=== PATIENT | male | born 1960 | race Two or more races ===

== ENCOUNTER 2024-04-26 22:24 | Inpatient (IN) | payer MEDICAID, OTHER ==
[~2024-04-26] VITALS: Ht 195.6 cm; Wt 79.5 kg
[2024-04-26 23:22] LABS: COVID AG,FIA SOURCE NASAL SWAB
[2024-04-26 23:26] LABS: BASOPHILS % (AUTO) 0.5 % (0.0-2.0); EOSINOPHILS % (AUTO) 0 % (1.0-6.0); HEMATOCRIT 52.2 % (41-53); HEMOGLOBIN 17.6 g/dL (13.5-17.5); LYMPHOCYTES # (AUTO) 1.9 K/uL (1.0-4.8); LYMPHOCYTES % (AUTO) 22.9 % (22.0-44.0); MEAN CORPUSCULAR HEMOGLOBIN 33.5 pg (26.0-34.0); MEAN CORPUSCULAR HGB CONC 33.6 G/dL (31.0-37.0); MEAN CORPUSCULAR VOLUME 100 fL (80-100); MONOCYTES # (AUTO) 0.3 K/uL (0.1-1.0); MONOCYTES % (AUTO) 3.6 % (2.0-9.0); PLATELET COUNT (AUTO) 203 K/uL (150-450); RED BLOOD CELL COUNT(AUTO) 5.25 MIL/uL (4.50-5.90); RED CELL DISTRIBUTION WIDTH 14.1 % (11.5-14.5); WHITE BLOOD COUNT (AUTO) 8.3 K/uL (4.5-11.0)
[2024-04-26 23:31] LABS: ANION GAP 18 mmol/L (8-16); CARBON DIOXIDE 24 mmol/L (22-29); CHLORIDE 99 mmol/L (98-107); CREATININE 0.91 mg/dL (0.60-1.30); GLOMERULAR FILTR. RATE CALC > 60 mL/min (>60); GLUCOSE,RANDOM 125 mg/dL (70-110); POTASSIUM 3.8 mmol/L (3.5-5.1); SODIUM SERUM 141 mmol/L (136-145); UREA NITROGEN, BLOOD 18 mg/dL (7-18)
[2024-04-26 23:44] LABS: SARS-COV2 (COVID) ANTIGEN,FIA Negative (Negative)
[2024-04-26 23:46] LABS: ALCOHOL, BLOOD (SERUM) 463 mg/dL (0-10)
[2024-04-27] VITALS (9 sets, daily range): BP systolic 108–157; BP diastolic 73–99; PULSE 67–107; RESP 17–19; TEMP 96.8–98.5; O2SAT 97–99
[2024-04-27 01:20] LABS: ALCOHOL, URINE DRUG SCREEN POSITIVE (NEGATIVE); AMPHET/METH SCREEN,URINE NEGATIVE (NEGATIVE); BARBITURATE SCREEN, URINE NEGATIVE (NEGATIVE); BENZODIAZEPINES SCREEN,URINE NEGATIVE (NEGATIVE); CANNABINOID SCREEN,URINE NEGATIVE (NEGATIVE); COCAINE SCREEN,URINE NEGATIVE (NEGATIVE); METHADONE SCREEN, URINE NEGATIVE (NEGATIVE); OPIATE SCREEN,URINE NEGATIVE (NEGATIVE); PHENCYCLIDINE SCREEN,URINE NEGATIVE (NEGATIVE)
[2024-04-27] MEDS: LORazepam 2 MG TABLET PO ONE (04:17)
[2024-04-27] MEDS: LORazepam 2 MG TABLET PO PRN ×2 (09:07→16:46)
[2024-04-27] MEDS ORDERED: HydrOXYzine PAMOATE 50 MG CAPSULE PO PRN (12:00)
[2024-04-27] MEDS ORDERED: GuaiFENesin/D-METHORPHAN [SUGAR-FREE] 200-20MG/10 ML SYRUP UDCUP PO PRN (12:00)
[2024-04-27] MEDS ORDERED: LOPERAMIDE HCL 2 MG CAPSULE PO PRN (12:00)
[2024-04-27] MEDS: LORazepam 2 MG/ML VIAL IM ONE (12:02)
[2024-04-27] MEDS: CYANOCOBALAMIN 1,000 MCG/ML VIAL IM ONE (13:18)
[2024-04-27] MEDS: MULTIVITAMINS WITH MINERALS, THERAPEUTIC TABLET PO SCH (13:18)
[2024-04-27] MEDS: FOLIC ACID 1 MG TABLET PO SCH (13:19)
[2024-04-27] MEDS: THIAMINE 100 MG TABLET PO SCH (16:25)
[2024-04-28] VITALS (8 sets, daily range): BP systolic 124–145; BP diastolic 68–89; PULSE 81–94; RESP 18–19; TEMP 98–99; O2SAT 95–98
[2024-04-28] MEDS: LORazepam 2 MG TABLET PO SCH (08:56)
[2024-04-28] MEDS ORDERED: LOPERAMIDE HCL 2 MG CAPSULE PO PRN (11:30)
[2024-04-28] MEDS ORDERED: GuaiFENesin/D-METHORPHAN [SUGAR-FREE] 200-20MG/10 ML SYRUP UDCUP PO PRN (11:30)
[2024-04-28] MEDS ORDERED: ALBUTEROL SULFATE HFA 90 MCG/PUFF 8 GM INHALER IH PRN (11:30)
[2024-04-28] MEDS ORDERED: DOCUSATE SODIUM 100 MG CAPSULE PO PRN (11:30)
[2024-04-28] MEDS ORDERED: MAGNESIUM HYDROXIDE SUSPENSION 30 ML UDCUP PO PRN (11:30)
[2024-04-28] MEDS ORDERED: NICOTINE 14 MG/24 HOUR PATCH TD PRN (11:30)
[2024-04-28] MEDS ORDERED: IBUPROFEN 400 MG TABLET PO PRN (11:30)
[2024-04-28] MEDS ORDERED: CloNIDine HCL 0.1 MG TABLET PO PRN (11:30)
[2024-04-28] MEDS ORDERED: MAG HYDROX/ALUMINUM HYD/SIMETH ES 30 ML SUSPENSION UDCUP PO PRN (11:30)
[2024-04-28] MEDS ORDERED: ONDANSETRON 4 MG TABLET PO PRN (11:30)
[2024-04-28] MEDS ORDERED: PETROLATUM,WHITE 28 GM JELLY TP PRN (11:30)
[2024-04-28] MEDS: ACETAMINOPHEN 325 MG TABLET PO PRN (13:14)
[2024-04-28] MEDS: ZOLPIDEM TARTRATE 10 MG TABLET PO PRN (22:52)
[2024-04-29] MEDS: HALOPERIDOL 5 MG TABLET PO PRN (02:30)
[2024-04-29] MEDS: LORazepam 2 MG TABLET PO PRN (02:30)
[2024-04-29 08:00] VITALS: BP 125/91; PULSE 87; RESP 19; TEMP 98; O2SAT 99
[2024-04-29 08:20] VITALS: BP 125/91; PULSE 87; RESP 20; TEMP 98; O2SAT 99
[2024-04-29 09:13] LABS: HEMOGLOBIN A1C 4.9 % (3.8-5.6)
[2024-04-29 09:28] LABS: THYROID STIMULATING HORMONE 1.96 uIU/mL (0.36-3.74)
[2024-04-29 12:00] LABS: CHOL/HDL RATIO 2.2 (4.2-7.3)
[2024-04-29 22:34] VITALS: BP 126/85; PULSE 87; RESP 18; TEMP 97.5; O2SAT 95
[2024-04-29 23:13] VITALS: BP 125/85; PULSE 94; RESP 18; TEMP 97.5; O2SAT 97
[2024-04-30] MEDS ORDERED: LORazepam 1 MG TABLET PO PRN (07:00)
[2024-04-30] MEDS: LORazepam 1 MG TABLET PO SCH (08:52)
[2024-04-30 09:56] VITALS: BP 121/80; PULSE 86; PULSE 87; RESP 18; RESP 19; TEMP 98.5; O2SAT 99
[2024-04-30] MEDS ORDERED: INFLUENZA VIRUS VACCINE TVS (6MO+) 2024-25/PF 45 MCG/0.5 ML SYRINGE IM. ONE (15:30)
[2024-04-30 20:37] VITALS: BP 134/77; PULSE 90; RESP 18; TEMP 97.6
[2024-04-30 20:40] VITALS: BP 134/77; PULSE 90; RESP 18; TEMP 97.6
[2024-05-01 08:30] VITALS: BP 140/88; PULSE 83; RESP 18; TEMP 97.5; O2SAT 96
[2024-05-01 09:00] VITALS: BP 140/88; PULSE 83; RESP 18; TEMP 97.5; O2SAT 96
[2024-05-01] MEDS: INFLUENZA VIRUS VACCINE TVS (6MO+) 2024-25/PF 45 MCG/0.5 ML SYRINGE IM. ONE (12:08)
[2024-05-01 20:59] VITALS: BP 124/72; PULSE 71; RESP 18; TEMP 98.2; O2SAT 97
[2024-05-01] MEDS: LORazepam 1 MG TABLET PO PRN (21:49)
[2024-05-02 09:24] VITALS: BP 123/97; PULSE 82; RESP 18; TEMP 97.4; O2SAT 98
== END 2024-05-02 12:00 | disposition home or self-care (01) | DRG 751 ==
LOC: EMS 22:24 → 3EI 04-27 07:47
PROVIDERS: ADMIT Psychiatry & Neurology Psychiatry; ATTEND Psychiatry & Neurology Psychiatry
PROC: GZHZZZZ Group Psychotherapy (ICD-10-PCS; principal; 2024-04-27)
PROC: GZ51ZZZ Individual Psychotherapy, Behavioral (ICD-10-PCS; 2024-04-27)
DX: F33.2 Major depressive disorder, recurrent severe without psychotic features (principal); R45.851 Suicidal ideations; F10.139 Alcohol abuse with withdrawal, unspecified; F10.129 Alcohol abuse with intoxication, unspecified; R73.9 Hyperglycemia, unspecified; Z20.822 Contact with and (suspected) exposure to COVID-19; F41.9 Anxiety disorder, unspecified; G47.00 Insomnia, unspecified; Z59.02 Unsheltered homelessness; Z87.891 Personal history of nicotine dependence
CPT/HCPCS: 80048; 80061; 80307; 83036; 84443; 85025; 90686; 99285; G0480; J2060; J3420

== ENCOUNTER 2024-06-18 10:50 | Inpatient (IN) | payer MEDICAID, OTHER ==
[~2024-06-18] VITALS: Ht 182.9 cm; Wt 81.0 kg
[2024-06-18 11:46] LABS: BASOPHILS % (AUTO) 0.8 % (0.0-2.0); EOSINOPHILS % (AUTO) 0.1 % (1.0-6.0); HEMATOCRIT 49.6 % (41-53); HEMOGLOBIN 16.7 g/dL (13.5-17.5); LYMPHOCYTES # (AUTO) 1.5 K/uL (1.0-4.8); LYMPHOCYTES % (AUTO) 19.9 % (22.0-44.0); MEAN CORPUSCULAR HEMOGLOBIN 33.5 pg (26.0-34.0); MEAN CORPUSCULAR HGB CONC 33.6 G/dL (31.0-37.0); MEAN CORPUSCULAR VOLUME 100 fL (80-100); MONOCYTES # (AUTO) 0.2 K/uL (0.1-1.0); MONOCYTES % (AUTO) 3.2 % (2.0-9.0); NEUTROPHILS # (AUTO) 5.7 K/uL (1.8-7.7); PLATELET COUNT (AUTO) 232 K/uL (150-450); RED BLOOD CELL COUNT(AUTO) 4.97 MIL/uL (4.50-5.90); RED CELL DISTRIBUTION WIDTH 14.1 % (11.5-14.5); WHITE BLOOD COUNT (AUTO) 7.5 K/uL (4.5-11.0)
[2024-06-18] MEDS: ONDANSETRON 4 MG RAPDIS TABLET PO ONE ×2 (11:52→20:04)
[2024-06-18 12:09] LABS: ANION GAP 13 mmol/L (8-16); CALCIUM, TOTAL 8.3 mg/dL (8.8-10.5); CARBON DIOXIDE 24 mmol/L (22-29); CHLORIDE 105 mmol/L (98-107); CREATININE 0.83 mg/dL (0.60-1.30); GLOMERULAR FILTR. RATE CALC > 60 mL/min (>60); GLUCOSE,RANDOM 122 mg/dL (70-110); POTASSIUM 3.9 mmol/L (3.5-5.1); SODIUM SERUM 142 mmol/L (136-145); UREA NITROGEN, BLOOD 9 mg/dL (7-18)
[2024-06-18 12:13] LABS: ALCOHOL, BLOOD (SERUM) 415 mg/dL (0-10)
[2024-06-18 12:16] LABS: ALANINE AMINOTRANSFERASE 32 U/L (12-78); ALBUMIN 3.9 g/dL (3.4-5.0); ALKALINE PHOSPHATASE 83 U/L (46-116); ASPARTATE AMINOTRANSFERASE 36 U/L (15-37); TOTAL PROTEIN, SERUM 7.6 g/dL (6.4-8.2)
[2024-06-18 12:19] LABS: PH,URINE DRUG SCREEN 6.5 (5.0-8.0)
[2024-06-18 12:25] LABS: AMPHET/METH SCREEN,URINE NEGATIVE (NEGATIVE); BARBITURATE SCREEN, URINE NEGATIVE (NEGATIVE); BENZODIAZEPINES SCREEN,URINE NEGATIVE (NEGATIVE); CANNABINOID SCREEN,URINE NEGATIVE (NEGATIVE); COCAINE SCREEN,URINE NEGATIVE (NEGATIVE); METHADONE SCREEN, URINE NEGATIVE (NEGATIVE); OPIATE SCREEN,URINE NEGATIVE (NEGATIVE); PHENCYCLIDINE SCREEN,URINE NEGATIVE (NEGATIVE)
[2024-06-18 12:26] LABS: ALCOHOL, URINE DRUG SCREEN POSITIVE (NEGATIVE)
[2024-06-18 18:00] LABS: COVID AG,FIA SOURCE NASAL SWAB
[2024-06-18 18:22] LABS: SARS-COV2 (COVID) ANTIGEN,FIA Negative (Negative)
[2024-06-18 22:10] VITALS: O2SAT 95
[2024-06-18 23:00] VITALS: BP 121/80; PULSE 82; RESP 19; TEMP 98; O2SAT 99
[2024-06-18] MEDS: LORazepam 2 MG TABLET PO PRN (23:10)
[2024-06-19] VITALS (7 sets, daily range): BP systolic 110–141; BP diastolic 68–91; PULSE 74–92; RESP 18–20; TEMP 97.6–98.1; O2SAT 98–99
[2024-06-19] MEDS ORDERED: GuaiFENesin/D-METHORPHAN [SUGAR-FREE] 200-20MG/10 ML SYRUP UDCUP PO PRN (08:00)
[2024-06-19] MEDS ORDERED: PETROLATUM,WHITE 28 GM JELLY TP PRN (08:00)
[2024-06-19] MEDS ORDERED: CloNIDine HCL 0.1 MG TABLET PO PRN (08:00)
[2024-06-19] MEDS ORDERED: NICOTINE 14 MG/24 HOUR PATCH TD PRN (08:00)
[2024-06-19] MEDS ORDERED: DOCUSATE SODIUM 100 MG CAPSULE PO PRN (08:00)
[2024-06-19] MEDS ORDERED: MAGNESIUM HYDROXIDE SUSPENSION 30 ML UDCUP PO PRN (08:00)
[2024-06-19] MEDS ORDERED: LOPERAMIDE HCL 2 MG CAPSULE PO PRN (08:00)
[2024-06-19] MEDS ORDERED: ALBUTEROL SULFATE HFA 90 MCG/PUFF 8 GM INHALER IH PRN (08:00)
[2024-06-19] MEDS ORDERED: ACETAMINOPHEN 325 MG TABLET PO PRN (08:00)
[2024-06-19] MEDS ORDERED: MAG HYDROX/ALUMINUM HYD/SIMETH ES 30 ML SUSPENSION UDCUP PO PRN (08:00)
[2024-06-19] MEDS ORDERED: ONDANSETRON 4 MG TABLET PO PRN ×2 (08:00)
[2024-06-19] MEDS: ChlordiazePOXIDE HCL 25 MG CAPSULE PO PRN (17:19)
[2024-06-19] MEDS: ZOLPIDEM TARTRATE 10 MG TABLET PO PRN (20:24)
[2024-06-20 02:00] VITALS: RESP 20
[2024-06-20 06:15] VITALS: BP 104/64; PULSE 62; RESP 20; TEMP 98; O2SAT 98
[2024-06-20] MEDS: ChlordiazePOXIDE HCL 25 MG CAPSULE PO PRN (06:25)
[2024-06-20 07:55] LABS: BASOPHILS % (AUTO) 0.3 % (0.0-2.0); EOSINOPHILS % (AUTO) 1.6 % (1.0-6.0); HEMATOCRIT 46.6 % (41-53); LYMPHOCYTES # (AUTO) 1.2 K/uL (1.0-4.8); LYMPHOCYTES % (AUTO) 19.1 % (22.0-44.0); MEAN CORPUSCULAR HEMOGLOBIN 34.4 pg (26.0-34.0); MEAN CORPUSCULAR HGB CONC 34.3 G/dL (31.0-37.0); MEAN CORPUSCULAR VOLUME 100 fL (80-100); MONOCYTES # (AUTO) 0.3 K/uL (0.1-1.0); MONOCYTES % (AUTO) 5.1 % (2.0-9.0); NEUTROPHILS # (AUTO) 4.5 K/uL (1.8-7.7); NEUTROPHILS % (AUTO) 73.9 % (40.0-70.0); PLATELET COUNT (AUTO) 136 K/uL (150-450); RED BLOOD CELL COUNT(AUTO) 4.65 MIL/uL (4.50-5.90); RED CELL DISTRIBUTION WIDTH 13.5 % (11.5-14.5); WHITE BLOOD COUNT (AUTO) 6.1 K/uL (4.5-11.0)
[2024-06-20 08:04] LABS: HEMOGLOBIN A1C 4.8 % (3.8-5.6)
[2024-06-20 08:53] LABS: ALANINE AMINOTRANSFERASE 33 U/L (12-78); ALBUMIN 3.6 g/dL (3.4-5.0); ALKALINE PHOSPHATASE 86 U/L (46-116); ANION GAP 10 mmol/L (8-16); ASPARTATE AMINOTRANSFERASE 42 U/L (15-37); BILIRUBIN,TOTAL 2.7 mg/dL (0.1-1.0); CARBON DIOXIDE 26 mmol/L (22-29); CHLORIDE 101 mmol/L (98-107); CHOL/HDL RATIO 1.8 (4.2-7.3); CHOLESTEROL 123 mg/dL (131-200); CREATININE 0.99 mg/dL (0.60-1.30); GLOMERULAR FILTR. RATE CALC > 60 mL/min (>60); GLUCOSE,RANDOM 99 mg/dL (70-110); HDL CHOLESTEROL 69 mg/dL (40-60); LDL CHOL (CALC.) 34 mg/dL (0-130); POTASSIUM 3.5 mmol/L (3.5-5.1); SODIUM SERUM 137 mmol/L (136-145); THYROID STIMULATING HORMONE 1.22 uIU/mL (0.36-3.74); TOTAL PROTEIN, SERUM 7.2 g/dL (6.4-8.2); TRIGLYCERIDES 99 mg/dL (15-150); UREA NITROGEN, BLOOD 14 mg/dL (7-18)
[2024-06-20] MEDS: SERTRALINE HCL 50 MG TABLET PO SCH (09:02)
[2024-06-20] MEDS: ChlordiazePOXIDE HCL 25 MG CAPSULE PO SCH (09:02)
[2024-06-20 09:48] LABS: RBC MORPHOLOGY COMMENT ABNORMAL RBC MORPH
[2024-06-20 10:08] VITALS: BP 144/77; PULSE 100; RESP 19; TEMP 97.5; O2SAT 100
[2024-06-20 15:00] VITALS: BP 139/70; PULSE 70; RESP 19; TEMP 97.6; O2SAT 99
[2024-06-20 15:06] VITALS: BP 137/80; PULSE 72; RESP 18; TEMP 98; O2SAT 98
[2024-06-20 20:32] VITALS: BP 126/79; PULSE 68; RESP 19; TEMP 98.5; O2SAT 98
[2024-06-21 05:09] VITALS: BP 142/68; PULSE 64; RESP 18; TEMP 98.2; O2SAT 99
[2024-06-21 08:30] VITALS: BP 128/83; PULSE 74; RESP 18; TEMP 98; O2SAT 98
[2024-06-21 15:06] VITALS: BP 110/74; PULSE 81; RESP 18; TEMP 97.8; O2SAT 98
[2024-06-21 20:37] VITALS: BP 113/67; PULSE 69; RESP 18; TEMP 97.8; O2SAT 98
[2024-06-21] MEDS: HALOPERIDOL 5 MG TABLET PO PRN (21:48)
[2024-06-22] MEDS ORDERED: ChlordiazePOXIDE HCL 10 MG CAPSULE PO PRN (07:00)
[2024-06-22 09:39] VITALS: BP 123/79; PULSE 78; RESP 18; TEMP 97.5; O2SAT 98
[2024-06-22] MEDS: ChlordiazePOXIDE HCL 10 MG CAPSULE PO SCH (13:00)
[2024-06-22 20:26] VITALS: BP 125/82; PULSE 72; RESP 18; TEMP 97.1; O2SAT 98
[2024-06-22 21:58] VITALS: BP 115/75; PULSE 80; RESP 18; TEMP 97.8; O2SAT 99
[2024-06-23] MEDS ORDERED: ChlordiazePOXIDE HCL 10 MG CAPSULE PO PRN (07:00)
[2024-06-23 09:00] VITALS: BP 110/80; PULSE 83; RESP 17; TEMP 98.2; O2SAT 97
[2024-06-23 22:35] VITALS: BP 112/69; PULSE 67; RESP 18; TEMP 97.6; O2SAT 97
[2024-06-24 09:41] VITALS: BP 119/73; PULSE 74; RESP 18; TEMP 98.3; O2SAT 97
[2024-06-24] MEDS: PROPRANOLOL HCL 10 MG TABLET PO SCH (18:26)
[2024-06-24 20:18] VITALS: BP 116/79; PULSE 97; RESP 18; TEMP 98.2; O2SAT 97
[2024-06-25 09:43] VITALS: BP 132/87; PULSE 65; RESP 19; TEMP 97.6; O2SAT 97
[2024-06-25 21:52] VITALS: BP 112/68; PULSE 60; RESP 18; TEMP 98.8; O2SAT 98
[2024-06-26 08:48] VITALS: BP 120/78; PULSE 67; RESP 16; TEMP 97.5; O2SAT 99
[2024-06-26] MEDS: IBUPROFEN 400 MG TABLET PO PRN (08:48)
[2024-06-26 09:48] VITALS: RESP 18
[2024-06-26 16:39] VITALS: BP 129/69; PULSE 74; RESP 18; TEMP 98.4; O2SAT 98
[2024-06-26 20:00] VITALS: BP 120/72; PULSE 67; RESP 16; TEMP 98.7; O2SAT 99
[2024-06-27 08:38] VITALS: BP 118/78; PULSE 83; RESP 19; TEMP 96.4; O2SAT 99
[2024-06-27] MEDS ORDERED: PROP10TA72 PO (09:59)
[2024-06-27] MEDS ORDERED: SERT-439 PO (09:59)
== END 2024-06-27 12:15 | disposition home or self-care (01) | DRG 751 ==
LOC: EMS 10:50 → 3EI 22:32
PROVIDERS: ADMIT Psychiatry & Neurology Child & Adolescent Psychiatry; ATTEND Psychiatry & Neurology Child & Adolescent Psychiatry
PROC: GZ56ZZZ Individual Psychotherapy, Supportive (ICD-10-PCS; 2024-06-19)
PROC: GZHZZZZ Group Psychotherapy (ICD-10-PCS; principal; 2024-06-21)
DX: F33.2 Major depressive disorder, recurrent severe without psychotic features (principal); F10.129 Alcohol abuse with intoxication, unspecified; Z20.822 Contact with and (suspected) exposure to COVID-19; G47.00 Insomnia, unspecified; F41.9 Anxiety disorder, unspecified; R73.9 Hyperglycemia, unspecified; I10 Essential (primary) hypertension; F17.200 Nicotine dependence, unspecified, uncomplicated
CPT/HCPCS: 80048; 80053; 80061; 80076; 80307; 83036; 84443; 85025; 99285; G0480

== ENCOUNTER 2024-11-01 18:42 | Inpatient (IN) | payer MEDICAID, OTHER ==
[~2024-11-01] VITALS: Ht 172.7 cm; Wt 85.7 kg
[~2024-11-01 18:42] MED LIST: PROP10TA72 PO; SERT-439 PO
[2024-11-01 19:34] LABS: BASOPHILS % (AUTO) 0.5 % (0.0-2.0); EOSINOPHILS % (AUTO) 0.5 % (1.0-6.0); HEMATOCRIT 47.7 % (41-53); LYMPHOCYTES # (AUTO) 2.7 K/uL (1.0-4.8); LYMPHOCYTES % (AUTO) 36.4 % (22.0-44.0); MEAN CORPUSCULAR HEMOGLOBIN 31.9 pg (26.0-34.0); MEAN CORPUSCULAR HGB CONC 33.5 G/dL (31.0-37.0); MEAN CORPUSCULAR VOLUME 96 fL (80-100); MONOCYTES # (AUTO) 0.2 K/uL (0.1-1.0); MONOCYTES % (AUTO) 3.3 % (2.0-9.0); NEUTROPHILS # (AUTO) 4.4 K/uL (1.8-7.7); NEUTROPHILS % (AUTO) 59.3 % (40.0-70.0); PLATELET COUNT (AUTO) 207 K/uL (150-450); RED CELL DISTRIBUTION WIDTH 13.1 % (11.5-14.5); WHITE BLOOD COUNT (AUTO) 7.4 K/uL (4.5-11.0)
[2024-11-01 19:41] LABS: ANION GAP 10 mmol/L (8-16); CALCIUM, TOTAL 8.3 mg/dL (8.8-10.5); CARBON DIOXIDE 27 mmol/L (22-29); CHLORIDE 108 mmol/L (98-107); CREATININE 0.75 mg/dL (0.60-1.30); GLOMERULAR FILTR. RATE CALC > 60 mL/min (>60); GLUCOSE,RANDOM 121 mg/dL (70-110); POTASSIUM 4.1 mmol/L (3.5-5.1); SODIUM SERUM 144 mmol/L (136-145); UREA NITROGEN, BLOOD 18 mg/dL (7-18)
[2024-11-01 20:01] LABS: ALCOHOL, BLOOD (SERUM) 351 mg/dL (0-10)
[2024-11-01 20:43] LABS: APPEARANCE,URINE CLEAR (CLEAR); BILIRUBIN,URINE NEGATIVE (NEGATIVE); COLOR,URINE LIGHT YELLOW (YELLOW); GLUCOSE, URINE (UA) NEGATIVE (NEGATIVE); KETONES,URINE NEGATIVE (NEGATIVE); LEUKOCYTE ESTERASE ,URINE NEGATIVE (NEGATIVE); NITRATE,URINE NEGATIVE (NEGATIVE); OCCULT BLOOD,URINE NEGATIVE (NEGATIVE); PH,URINE 6.5 (5.0-8.0); PH,URINE DRUG SCREEN 6.5 (5.0-8.0); PROTEIN,URINE TRACE mg/dL (NEGATIVE); SPECIFIC GRAVITIY, URINE 1.015 (1.003-1.030); UROBILINOGEN,URINE <=1.0 mg/dL (<=1.0)
[2024-11-01 20:45] LABS: AMPHET/METH SCREEN,URINE NEGATIVE (NEGATIVE); BARBITURATE SCREEN, URINE NEGATIVE (NEGATIVE); BENZODIAZEPINES SCREEN,URINE NEGATIVE (NEGATIVE); CANNABINOID SCREEN,URINE NEGATIVE (NEGATIVE); COCAINE SCREEN,URINE NEGATIVE (NEGATIVE); METHADONE SCREEN, URINE NEGATIVE (NEGATIVE); OPIATE SCREEN,URINE NEGATIVE (NEGATIVE); PHENCYCLIDINE SCREEN,URINE NEGATIVE (NEGATIVE)
[2024-11-01 20:52] LABS: ALCOHOL, URINE DRUG SCREEN POSITIVE (NEGATIVE)
[2024-11-01 21:00] LABS: COVID AG,FIA SOURCE NASAL SWAB
[2024-11-01] MEDS ORDERED: HALOPERIDOL 5 MG TABLET PO PRN (21:00)
[2024-11-01 21:19] LABS: SARS-COV2 (COVID) ANTIGEN,FIA Negative (Negative)
[2024-11-01] MEDS: ZOLPIDEM TARTRATE 10 MG TABLET PO PRN (22:16)
[2024-11-01] MEDS: LORazepam 2 MG TABLET PO PRN (22:17)
[2024-11-02] VITALS (12 sets, daily range): BP systolic 108–135; BP diastolic 60–88; PULSE 59–84; RESP 17–18; TEMP 96.5–98.5; O2SAT 98
[2024-11-02] MEDS ORDERED: BUPR-49 PO (09:54)
[2024-11-02] MEDS ORDERED: GABA-1181 PO (09:54)
[2024-11-02] MEDS ORDERED: LOPERAMIDE HCL 2 MG CAPSULE PO PRN ×2 (10:00→10:15)
[2024-11-02] MEDS ORDERED: GuaiFENesin/D-METHORPHAN [SUGAR-FREE] 200-20MG/10 ML SYRUP UDCUP PO PRN ×2 (10:00→10:15)
[2024-11-02] MEDS ORDERED: HydrOXYzine PAMOATE 50 MG CAPSULE PO PRN (10:00)
[2024-11-02] MEDS ORDERED: MAG HYDROX/ALUMINUM HYD/SIMETH ES 30 ML SUSPENSION UDCUP PO PRN (10:15)
[2024-11-02] MEDS ORDERED: ACETAMINOPHEN 325 MG TABLET PO PRN (10:15)
[2024-11-02] MEDS ORDERED: ALBUTEROL SULFATE HFA 90 MCG/PUFF 8 GM INHALER IH PRN (10:15)
[2024-11-02] MEDS ORDERED: PETROLATUM,WHITE 28 GM JELLY TP PRN (10:15)
[2024-11-02] MEDS ORDERED: CloNIDine HCL 0.1 MG TABLET PO PRN (10:15)
[2024-11-02] MEDS ORDERED: DOCUSATE SODIUM 100 MG CAPSULE PO PRN (10:15)
[2024-11-02] MEDS ORDERED: MAGNESIUM HYDROXIDE SUSPENSION 30 ML UDCUP PO PRN (10:15)
[2024-11-02] MEDS: ONDANSETRON 4 MG TABLET PO PRN (10:22)
[2024-11-02] MEDS: MULTIVITAMINS WITH MINERALS, THERAPEUTIC TABLET PO SCH (10:44)
[2024-11-02] MEDS: FOLIC ACID 1 MG TABLET PO SCH (10:44)
[2024-11-02] MEDS: BuPROPion HCL XL 150 MG ER TABLET PO SCH (10:44)
[2024-11-02] MEDS: THIAMINE 100 MG TABLET PO SCH (10:45)
[2024-11-02] MEDS: CYANOCOBALAMIN 1,000 MCG/ML VIAL IM ONE (10:54)
[2024-11-02] MEDS: LORazepam 2 MG TABLET PO PRN (13:11)
[2024-11-02] MEDS: GABAPENTIN 300 MG CAPSULE PO SCH (13:12)
[2024-11-02] MEDS: IBUPROFEN 400 MG TABLET PO PRN (15:00)
[2024-11-03 02:15] VITALS: BP 127/71; PULSE 61; RESP 18; TEMP 97.8; O2SAT 98
[2024-11-03 06:19] VITALS: BP 109/68; PULSE 65; RESP 17; TEMP 97.3; O2SAT 97
[2024-11-03] MEDS ORDERED: LORazepam 2 MG TABLET PO PRN (07:00)
[2024-11-03] MEDS: LORazepam 2 MG TABLET PO SCH (08:04)
[2024-11-03 09:00] LABS: HEMOGLOBIN A1C 4.8 % (3.8-5.6)
[2024-11-03 09:14] LABS: CHOL/HDL RATIO 2.4 (4.2-7.3); THYROID STIMULATING HORMONE 1.73 uIU/mL (0.36-3.74)
[2024-11-03 10:16] VITALS: BP 130/77; PULSE 74; RESP 18; TEMP 98.2; O2SAT 96
[2024-11-03 10:25] VITALS: BP 130/77; PULSE 74; RESP 18; TEMP 98.2; O2SAT 96
[2024-11-03 20:11] VITALS: BP 140/75; PULSE 70; RESP 17; TEMP 97.6; O2SAT 96
[2024-11-03 23:00] VITALS: BP 119/71; PULSE 66; RESP 20; TEMP 98.5; O2SAT 98
[2024-11-04 02:15] VITALS: BP 119/71; PULSE 66; RESP 20; TEMP 98.5; O2SAT 98
[2024-11-04 05:32] VITALS: BP 124/80; PULSE 71; RESP 18; TEMP 97.5; O2SAT 98
[2024-11-04 08:40] VITALS: BP 142/88; PULSE 71; RESP 16; TEMP 98.3; O2SAT 98
[2024-11-04] MEDS: NICOTINE 14 MG/24 HOUR PATCH TD PRN (09:00)
[2024-11-04 13:23] VITALS: BP 117/71; PULSE 78; RESP 16; TEMP 98.3; O2SAT 98
[2024-11-04 20:39] VITALS: BP 110/75; PULSE 77; RESP 17; TEMP 97.3; O2SAT 96
[2024-11-04 21:38] VITALS: BP 110/75; PULSE 77; RESP 17; TEMP 97.3; O2SAT 96
[2024-11-05] MEDS ORDERED: LORazepam 1 MG TABLET PO PRN (07:00)
[2024-11-05 08:41] VITALS: BP 116/71; PULSE 81; RESP 17; TEMP 97.3; O2SAT 98
[2024-11-05] MEDS: LORazepam 1 MG TABLET PO SCH (08:48)
[2024-11-05 13:14] VITALS: BP 116/71; PULSE 81; RESP 17; TEMP 97.3; O2SAT 98
[2024-11-05 20:34] VITALS: BP 119/74; PULSE 75; RESP 16; TEMP 97.5; O2SAT 98
[2024-11-05 20:55] VITALS: BP 119/74; PULSE 75; RESP 18; TEMP 97.3; O2SAT 98
[2024-11-06] MEDS ORDERED: LORazepam 1 MG TABLET PO PRN (07:00)
[2024-11-06 08:08] VITALS: BP 117/71; PULSE 83; RESP 17; TEMP 97.4; O2SAT 98
[2024-11-06 11:51] VITALS: BP 117/71; PULSE 83; RESP 17; TEMP 97.4; O2SAT 98
== END 2024-11-06 19:18 | disposition home or self-care (01) | DRG 751 ==
LOC: EMS 18:43 → B3A 11-02 03:07
PROVIDERS: ADMIT Psychiatry & Neurology Psychiatry; ATTEND Psychiatry & Neurology Psychiatry
PROC: GZHZZZZ Group Psychotherapy (ICD-10-PCS; principal; 2024-11-02)
PROC: GZ52ZZZ Individual Psychotherapy, Cognitive (ICD-10-PCS; 2024-11-02)
DX: F33.2 Major depressive disorder, recurrent severe without psychotic features (principal); F10.239 Alcohol dependence with withdrawal, unspecified; Z20.822 Contact with and (suspected) exposure to COVID-19; G47.00 Insomnia, unspecified; R73.9 Hyperglycemia, unspecified; F41.9 Anxiety disorder, unspecified; Y90.8 Blood alcohol level of 240 mg/100 ml or more; F17.200 Nicotine dependence, unspecified, uncomplicated; Z59.02 Unsheltered homelessness; Z79.899 Other long term (current) drug therapy
CPT/HCPCS: 80048; 80061; 80307; 81003; 83036; 84443; 85025; 99285; G0480; J3420; Q0162

== ENCOUNTER 2024-12-26 09:41 | Inpatient (IN) | payer MEDICAID, OTHER ==
[~2024-12-26] VITALS: Ht 182.9 cm; Wt 86.4 kg
[~2024-12-26 09:41] MED LIST changes: +BUPR-49 PO; +GABA-1181 PO; -PROP10TA72 PO; -SERT-439 PO
[2024-12-26 10:44] LABS: BASOPHILS % (AUTO) 0.7 % (0.0-2.0); EOSINOPHILS % (AUTO) 0.1 % (1.0-6.0); HEMATOCRIT 49.5 % (41-53); HEMOGLOBIN 16.8 g/dL (13.5-17.5); MEAN CORPUSCULAR HEMOGLOBIN 31.5 pg (26.0-34.0); MEAN CORPUSCULAR VOLUME 93 fL (80-100); MONOCYTES # (AUTO) 0.3 K/uL (0.1-1.0); MONOCYTES % (AUTO) 3.5 % (2.0-9.0); NEUTROPHILS # (AUTO) 5.7 K/uL (1.8-7.7); NEUTROPHILS % (AUTO) 70.7 % (40.0-70.0); PLATELET COUNT (AUTO) 203 K/uL (150-450); RED BLOOD CELL COUNT(AUTO) 5.34 MIL/uL (4.50-5.90); RED CELL DISTRIBUTION WIDTH 13.6 % (11.5-14.5); WHITE BLOOD COUNT (AUTO) 8.1 K/uL (4.5-11.0)
[2024-12-26 10:53] LABS: ANION GAP 12 mmol/L (8-16); CALCIUM, TOTAL 8.2 mg/dL (8.8-10.5); CARBON DIOXIDE 23 mmol/L (22-29); CHLORIDE 104 mmol/L (98-107); CREATININE 0.95 mg/dL (0.60-1.30); GLOMERULAR FILTR. RATE CALC > 60 mL/min (>60); GLUCOSE,RANDOM 100 mg/dL (70-110); POTASSIUM 3.9 mmol/L (3.5-5.1); SODIUM SERUM 139 mmol/L (136-145); UREA NITROGEN, BLOOD 17 mg/dL (7-18)
[2024-12-26 11:06] LABS: AMPHET/METH SCREEN,URINE NEGATIVE (NEGATIVE); BARBITURATE SCREEN, URINE NEGATIVE (NEGATIVE); BENZODIAZEPINES SCREEN,URINE NEGATIVE (NEGATIVE); CANNABINOID SCREEN,URINE NEGATIVE (NEGATIVE); COCAINE SCREEN,URINE NEGATIVE (NEGATIVE); METHADONE SCREEN, URINE NEGATIVE (NEGATIVE); OPIATE SCREEN,URINE NEGATIVE (NEGATIVE); PHENCYCLIDINE SCREEN,URINE NEGATIVE (NEGATIVE)
[2024-12-26 11:07] LABS: ALCOHOL, URINE DRUG SCREEN POSITIVE (NEGATIVE)
[2024-12-26 12:38] LABS: COVID AG,FIA SOURCE NASAL SWAB
[2024-12-26 13:08] LABS: SARS-COV2 (COVID) ANTIGEN,FIA Negative (Negative)
[2024-12-26] MEDS: LORazepam 2 MG/ML VIAL IVP ONE (14:23)
[2024-12-26] MEDS: SODIUM CHLORIDE 0.9% 1,000 ML IV ONE (14:24)
[2024-12-26 14:36] LABS: TROPONIN I-HIGH SENSITIVITY 6 ng/L (<76)
[2024-12-26] MEDS ORDERED: ONDANSETRON HCL 4 MG/2 ML VIAL IVP PRN (17:30)
[2024-12-26] MEDS ORDERED: MAGNESIUM HYDROXIDE SUSPENSION 30 ML UDCUP PO PRN (17:30)
[2024-12-26] MEDS ORDERED: LORazepam 2 MG TABLET PO PRN (17:30)
[2024-12-26] MEDS ORDERED: IPRATROPIUM BROMIDE 0.5 MG/2.5 ML NEB SOLUTION NEB PRN (17:30)
[2024-12-26] MEDS ORDERED: ALBUTEROL SULFATE 2.5 MG/0.5 ML NEB SOLUTION NEB PRN (17:30)
[2024-12-26] MEDS ORDERED: BISACODYL 10 MG RECTAL RECTAL SUPPOSITORY PR PRN (17:30)
[2024-12-26] MEDS: LORazepam 2 MG/ML VIAL IVP PRN (19:03)
[2024-12-26] MEDS: 1: MAGNESIUM SULFATE 2 GM, MVI, ADULT NO.1 WITH VIT K 10 ML, THIAMINE 100 MG, FOLIC ACID IV SCH (19:19)
[2024-12-26] MEDS: DOCUSATE SODIUM 100 MG CAPSULE PO SCH (19:20)
[2024-12-26 20:45] VITALS: BP 149/78; PULSE 80; RESP 17; TEMP 98.1; O2SAT 97
[2024-12-26 21:45] VITALS: BP 132/93; PULSE 75; RESP 18; TEMP 98.1; O2SAT 95
[2024-12-26 22:45] VITALS: BP 139/84; PULSE 87; RESP 19; TEMP 98; O2SAT 97
[2024-12-26 23:45] VITALS: BP 141/89; PULSE 82; RESP 19; TEMP 98.2; O2SAT 98
[2024-12-27] MEDS: HEPARIN SODIUM,PORCINE 5,000 UNITS/ML VIAL SQ SCH
[2024-12-27 00:01] VITALS: BP 132/93; PULSE 76; RESP 18; TEMP 98.1; O2SAT 95
[2024-12-27 00:45] VITALS: BP 125/78; PULSE 76; RESP 18; TEMP 98.1; O2SAT 97
[2024-12-27] MEDS: ZOLPIDEM TARTRATE 5 MG TABLET PO PRN (02:25)
[2024-12-27 04:23] VITALS: BP 111/70; PULSE 68; RESP 18; TEMP 97.9; O2SAT 99
[2024-12-27 04:45] VITALS: BP 132/93; PULSE 69; RESP 18; TEMP 98; O2SAT 95
[2024-12-27] MEDS ORDERED: LORazepam 2 MG TABLET PO PRN (07:00)
[2024-12-27 07:18] VITALS: BP 128/72; PULSE 71; RESP 18; TEMP 98.2; O2SAT 96
[2024-12-27] MEDS: PANTOPRAZOLE SODIUM 40 MG/VIAL IVP SCH (08:37)
[2024-12-27] MEDS: LORazepam 2 MG TABLET PO SCH (08:37)
[2024-12-27] MEDS ORDERED: SODIUM CHLORIDE 0.9% 1,000 ML ONE (10:21)
[2024-12-27 10:23] VITALS: BP 128/80; PULSE 80; RESP 18; TEMP 97.9; O2SAT 100
[2024-12-27] MEDS: ACETAMINOPHEN 325 MG TABLET PO PRN (10:26)
[2024-12-27] MEDS ORDERED: GABAPENTIN 300 MG CAPSULE PO SCH (21:00)
[2024-12-27] MEDS ORDERED: BuPROPion HCL XL 150 MG ER TABLET PO SCH (21:00)
[2024-12-28] MEDS ORDERED: BuPROPion HCL XL 150 MG ER TABLET PO SCH (09:00)
[2024-12-29] MEDS ORDERED: LORazepam 1 MG TABLET PO PRN (07:00)
[2024-12-29] MEDS ORDERED: LORazepam 1 MG TABLET PO SCH (09:00)
[2024-12-30] MEDS ORDERED: LORazepam 1 MG TABLET PO PRN (07:00)
== END 2024-12-27 19:53 | disposition left against medical advice (07) | DRG 770 ==
LOC: EMS 09:41 → EDH 14:40 → 5N 20:39
PROVIDERS: ADMIT Hospitalist; ATTEND Hospitalist
DX: F10.239 Alcohol dependence with withdrawal, unspecified (principal); R45.851 Suicidal ideations; F32.9 Major depressive disorder, single episode, unspecified; F41.9 Anxiety disorder, unspecified; F17.200 Nicotine dependence, unspecified, uncomplicated; Z71.6 Tobacco abuse counseling; Z53.29 Procedure and treatment not carried out because of patient's decision for other reasons
CPT/HCPCS: 71045; 80048; 80307; 83735; 83880; 84484; 85025; 93005; 96361; 96365; 96375; 96376; 99285; G0480; J1644; J2060; J2470; J3411; J3475; J3490; J7030; 36415-L1; 36415-TC

== ENCOUNTER 2024-12-31 15:56 | Inpatient (IN) | payer MEDICAID, OTHER ==
[~2024-12-31] VITALS: Ht 172.7 cm; Wt 91.4 kg
[2024-12-31 16:53] LABS: BASOPHILS % (AUTO) 0.3 % (0.0-2.0); HEMOGLOBIN 16.6 g/dL (13.5-17.5); MONOCYTES # (AUTO) 0.5 K/uL (0.1-1.0)
[2024-12-31 17:02] LABS: ANION GAP 10 mmol/L (8-16); CALCIUM, TOTAL 8.5 mg/dL (8.8-10.5); CARBON DIOXIDE 24 mmol/L (22-29); CHLORIDE 105 mmol/L (98-107); CREATININE 0.71 mg/dL (0.60-1.30); EOSINOPHILS % (AUTO) 0.3 % (1.0-6.0); GLOMERULAR FILTR. RATE CALC > 60 mL/min (>60); GLUCOSE,RANDOM 117 mg/dL (70-110); HEMATOCRIT 48.9 % (41-53); LYMPHOCYTES # (AUTO) 2.2 K/uL (1.0-4.8); LYMPHOCYTES % (AUTO) 22.4 % (22.0-44.0); MEAN CORPUSCULAR HEMOGLOBIN 31.6 pg (26.0-34.0); MEAN CORPUSCULAR VOLUME 93 fL (80-100); MONOCYTES % (AUTO) 5.3 % (2.0-9.0); NEUTROPHILS % (AUTO) 71.7 % (40.0-70.0); PLATELET COUNT (AUTO) 188 K/uL (150-450); POTASSIUM 3.8 mmol/L (3.5-5.1); RED BLOOD CELL COUNT(AUTO) 5.27 MIL/uL (4.50-5.90); RED CELL DISTRIBUTION WIDTH 13.7 % (11.5-14.5); SODIUM SERUM 139 mmol/L (136-145); UREA NITROGEN, BLOOD 11 mg/dL (7-18); WHITE BLOOD COUNT (AUTO) 9.8 K/uL (4.5-11.0)
[2024-12-31 17:09] LABS: ALBUMIN 3.7 g/dL (3.4-5.0); BILIRUBIN,DIRECT 0.3 mg/dL (0.00-0.20); BILIRUBIN,TOTAL 0.9 mg/dL (0.1-1.0); TOTAL PROTEIN, SERUM 7.8 g/dL (6.4-8.2)
[2024-12-31 18:52] LABS: COVID AG,FIA SOURCE NPH
[2024-12-31 19:13] LABS: SARS-COV2 (COVID) ANTIGEN,FIA Negative (Negative)
[2024-12-31] MEDS ORDERED: PROMETHAZINE HCL 25 MG TABLET PO PRN (22:45)
[2024-12-31] MEDS ORDERED: LOPERAMIDE HCL 2 MG CAPSULE PO PRN (22:45)
[2024-12-31] MEDS ORDERED: TUBERCULIN, PURIFIED PROTEIN DERIVATIVE 5 TU/0.1 ML SYRINGE ID ONE (22:45)
[2024-12-31] MEDS ORDERED: ZOLPIDEM TARTRATE 10 MG TABLET PO PRN (22:45)
[2024-12-31] MEDS ORDERED: MAGNESIUM HYDROXIDE SUSPENSION 30 ML UDCUP PO PRN (22:45)
[2024-12-31 22:51] VITALS: O2SAT 98
[2024-12-31] MEDS: CYANOCOBALAMIN 1,000 MCG/ML VIAL IM ONE (23:20)
[2024-12-31] MEDS: QUEtiapine FUMARATE 100 MG TABLET PO PRN (23:26)
[2024-12-31] MEDS: ZOLPIDEM TARTRATE 10 MG TABLET PO PRN (23:26)
[2024-12-31] MEDS: diazePAM 10 MG TABLET PO PRN (23:28)
[2025-01-01] VITALS (8 sets, daily range): BP systolic 96–147; BP diastolic 74–92; PULSE 66–91; RESP 16–18; TEMP 97.3–97.8; O2SAT 96–100
[2025-01-01] MEDS: MULTIVITAMINS WITH MINERALS, THERAPEUTIC TABLET PO SCH (10:21)
[2025-01-01] MEDS: GABAPENTIN 400 MG CAPSULE PO SCH (10:21)
[2025-01-01] MEDS: THIAMINE 100 MG TABLET PO SCH (10:21)
[2025-01-01] MEDS: NALTREXONE HCL 50 MG TABLET PO SCH (10:21)
[2025-01-01] MEDS: DIVALPROEX SODIUM 500 MG ER TABLET PO SCH (10:22)
[2025-01-01] MEDS: FOLIC ACID 1 MG TABLET PO SCH (10:22)
[2025-01-01] MEDS: diazePAM 10 MG TABLET PO SCH (10:22)
[2025-01-01] MEDS: DULoxetine HCL 20 MG CAPSULE PO SCH (10:23)
[2025-01-01] MEDS: MAG HYDROX/ALUMINUM HYD/SIMETH ES 30 ML SUSPENSION UDCUP PO PRN (23:12)
[2025-01-02 03:00] VITALS: BP 143/90; PULSE 84; RESP 18; TEMP 97.8; O2SAT 99
[2025-01-02 07:45] LABS: HEMOGLOBIN A1C 5.2 % (3.8-5.6)
[2025-01-02 07:51] LABS: ALCOHOL, BLOOD (SERUM) < 3 mg/dL (0-10)
[2025-01-02 07:59] LABS: CHOL/HDL RATIO 1.7 (4.2-7.3); CHOLESTEROL 133 mg/dL (131-200); HDL CHOLESTEROL 79 mg/dL (40-60); LDL CHOL (CALC.) 45 mg/dL (0-130); THYROID STIMULATING HORMONE 0.72 uIU/mL (0.36-3.74); TRIGLYCERIDES 43 mg/dL (15-150)
[2025-01-02 16:16] VITALS: BP 133/87; PULSE 94; RESP 16; TEMP 97.5; O2SAT 97
[2025-01-02 17:25] VITALS: BP 142/92; PULSE 82; RESP 18; O2SAT 98
[2025-01-02] MEDS: NITROGLYCERIN 0.4 MG SUBLINGUAL TABLET #25 SL ONE (17:43)
[2025-01-02] MEDS: OMEPRAZOLE 20 MG CAPSULE PO SCH (20:52)
[2025-01-02] MEDS: LOPERAMIDE HCL 2 MG CAPSULE PO PRN (21:10)
[2025-01-02 22:13] VITALS: BP 118/76; PULSE 70; RESP 18; TEMP 97.4; O2SAT 99
[2025-01-02 23:03] VITALS: BP 136/84; PULSE 68; RESP 17; TEMP 97.6; O2SAT 96
[2025-01-03] MEDS: diazePAM 10 MG TABLET PO PRN (02:43)
[2025-01-03 02:47] VITALS: BP 118/78; PULSE 78; RESP 16; TEMP 98.2; O2SAT 97
[2025-01-03 03:20] VITALS: BP 128/82; PULSE 66; RESP 18; TEMP 97.6; O2SAT 96
[2025-01-03] MEDS: diazePAM 5 MG TABLET PO SCH (08:18)
[2025-01-03 08:45] VITALS: BP 137/82; PULSE 77; RESP 18; TEMP 98.1; O2SAT 100
[2025-01-03 09:33] LABS: APPEARANCE,URINE CLEAR (CLEAR); BILIRUBIN,URINE NEGATIVE (NEGATIVE); COLOR,URINE YELLOW (YELLOW); GLUCOSE, URINE (UA) NEGATIVE (NEGATIVE); KETONES,URINE NEGATIVE (NEGATIVE); LEUKOCYTE ESTERASE ,URINE NEGATIVE (NEGATIVE); NITRATE,URINE NEGATIVE (NEGATIVE); OCCULT BLOOD,URINE NEGATIVE (NEGATIVE); PROTEIN,URINE NEGATIVE (NEGATIVE); SPECIFIC GRAVITIY, URINE 1.012 (1.003-1.030); UROBILINOGEN,URINE <=1.0 mg/dL (<=1.0)
[2025-01-03 09:50] LABS: ALCOHOL, URINE DRUG SCREEN NEGATIVE (NEGATIVE); AMPHET/METH SCREEN,URINE NEGATIVE (NEGATIVE); BARBITURATE SCREEN, URINE NEGATIVE (NEGATIVE); BENZODIAZEPINES SCREEN,URINE POSITIVE (NEGATIVE); CANNABINOID SCREEN,URINE NEGATIVE (NEGATIVE); COCAINE SCREEN,URINE NEGATIVE (NEGATIVE); METHADONE SCREEN, URINE NEGATIVE (NEGATIVE); OPIATE SCREEN,URINE NEGATIVE (NEGATIVE); PHENCYCLIDINE SCREEN,URINE NEGATIVE (NEGATIVE)
[2025-01-03] MEDS: diazePAM 5 MG TABLET PO PRN (12:37)
[2025-01-03 22:51] VITALS: BP 132/92; PULSE 81; RESP 16; TEMP 98; O2SAT 95
[2025-01-03 23:08] VITALS: BP 132/92; PULSE 81; RESP 16; TEMP 98; O2SAT 95
[2025-01-04] MEDS ORDERED: diazePAM 5 MG TABLET PO PRN (07:00)
[2025-01-04] MEDS: BuPROPion HCL XL 150 MG ER TABLET PO SCH (08:00)
[2025-01-04 11:03] VITALS: BP 136/81; PULSE 69; RESP 17; TEMP 97.3; O2SAT 99
[2025-01-04 20:00] VITALS: BP 109/64; PULSE 64; RESP 16; TEMP 97.7; O2SAT 95
[2025-01-04 20:29] VITALS: BP 129/64; PULSE 64; RESP 16; TEMP 97.7; O2SAT 94
[2025-01-05 00:07] VITALS: BP 109/64; PULSE 64; RESP 18; TEMP 97.7; O2SAT 95
[2025-01-05 08:35] VITALS: BP 114/79; PULSE 69; RESP 17; TEMP 97.7; O2SAT 98
[2025-01-05] MEDS: HydrOXYzine PAMOATE 50 MG CAPSULE PO PRN (10:06)
[2025-01-05 20:00] VITALS: BP 121/72; PULSE 72; RESP 19; TEMP 98; O2SAT 98
[2025-01-06 00:22] VITALS: BP 128/61; PULSE 63; RESP 18; TEMP 98; O2SAT 97
[2025-01-06 09:00] VITALS: BP 114/73; PULSE 78; RESP 20; TEMP 97.6; O2SAT 100
[2025-01-06 20:39] VITALS: BP 110/66; PULSE 77; RESP 16; TEMP 98.6; O2SAT 98
[2025-01-06 22:53] VITALS: BP 110/66; PULSE 77; RESP 16; TEMP 98.6; O2SAT 98
[2025-01-07 10:57] VITALS: BP 123/86; PULSE 66; RESP 18; TEMP 97.9; O2SAT 99
[2025-01-07] MEDS: QUEtiapine FUMARATE 25 MG TABLET PO SCH (21:12)
[2025-01-07] MEDS: GABAPENTIN 300 MG CAPSULE PO SCH (21:13)
[2025-01-07 21:58] VITALS: BP 133/79; PULSE 78; RESP 18; TEMP 98; O2SAT 100
[2025-01-08 09:30] VITALS: BP 117/79; PULSE 68; RESP 18; TEMP 98.2; O2SAT 97
[2025-01-08] MEDS: DULoxetine HCL 30 MG CAPSULE PO SCH (09:51)
[2025-01-08 20:30] VITALS: RESP 16; TEMP 97.5
[2025-01-09 08:00] VITALS: BP 109/72; PULSE 61; RESP 12; O2SAT 97
[2025-01-09] MEDS: QUEtiapine FUMARATE 25 MG TABLET PO SCH (20:26)
[2025-01-09] MEDS: GABAPENTIN 400 MG CAPSULE PO SCH (20:26)
[2025-01-09 20:56] VITALS: BP 124/83; PULSE 75; RESP 18; TEMP 97.1; O2SAT 96
[2025-01-10 08:00] VITALS: BP 135/83; PULSE 74; RESP 19; TEMP 97; O2SAT 99
[2025-01-10] MEDS: DULoxetine HCL 20 MG CAPSULE PO SCH (08:10)
[2025-01-10 21:38] VITALS: BP 118/75; PULSE 74; RESP 16; TEMP 98.3; O2SAT 96
[2025-01-11 08:00] VITALS: BP 103/72; PULSE 68; RESP 19; TEMP 97.6; O2SAT 99
[2025-01-11 22:19] VITALS: BP 121/75; PULSE 74; RESP 16; TEMP 97.7; O2SAT 96
[2025-01-12] MEDS: DULoxetine HCL 20 MG CAPSULE PO SCH (08:54)
[2025-01-12 09:14] VITALS: BP 113/78; PULSE 60; RESP 18; TEMP 97.1; O2SAT 99
[2025-01-12 21:34] VITALS: BP 114/8; PULSE 70; RESP 18; TEMP 98.6; O2SAT 97
[2025-01-13] MEDS: ACETAMINOPHEN 325 MG TABLET PO PRN (01:35)
[2025-01-13 10:47] VITALS: BP 135/87; PULSE 79; RESP 17; TEMP 99; O2SAT 99
[2025-01-13 20:25] VITALS: BP 122/74; PULSE 89; RESP 18; TEMP 98.9; O2SAT 89
[2025-01-13] MEDS: GuaiFENesin/D-METHORPHAN [SUGAR-FREE] 200-20MG/10 ML SYRUP UDCUP PO PRN (21:39)
[2025-01-14 08:18] VITALS: BP 125/80; PULSE 83; RESP 16; TEMP 97.8; O2SAT 95
[2025-01-15 00:28] VITALS: BP 133/86; PULSE 86; RESP 18; O2SAT 96
[2025-01-15 08:30] VITALS: BP 121/82; PULSE 96; RESP 18; TEMP 98.8; O2SAT 98
[2025-01-15] MEDS: DULoxetine HCL 20 MG CAPSULE PO SCH (09:47)
[2025-01-15 21:20] VITALS: BP 159/94; PULSE 98; RESP 18; TEMP 97.3; O2SAT 98
[2025-01-16 11:35] VITALS: BP 150/81; PULSE 90; RESP 18; TEMP 97.6; O2SAT 97
[2025-01-16 20:30] VITALS: BP 152/100; PULSE 98; RESP 19; TEMP 99.1; O2SAT 96
[2025-01-17] MEDS: ESZOPICLONE 3 MG TABLET PO PRN (00:11)
[2025-01-17 08:29] VITALS: BP 141/91; PULSE 95; RESP 18; TEMP 98.2; O2SAT 97
[2025-01-17 21:10] VITALS: BP 146/92; PULSE 103; RESP 18; TEMP 97.8; O2SAT 98
[2025-01-18 04:30] VITALS: BP 141/90; PULSE 101; RESP 17; TEMP 101.6; O2SAT 96
[2025-01-18] MEDS ORDERED: IBUPROFEN 600 MG TABLET PO PRN (07:00)
[2025-01-18 07:11] VITALS: BP 133/83; PULSE 102; RESP 18; TEMP 102.6
[2025-01-18] MEDS: ACETAMINOPHEN 325 MG TABLET PO PRN (07:14)
[2025-01-18] MEDS: AZITHROMYCIN 500 MG TABLET PO SCH (08:43)
[2025-01-18 08:53] LABS: BASOPHILS % (AUTO) 0.4 % (0.0-2.0); EOSINOPHILS % (AUTO) 0.1 % (1.0-6.0); HEMATOCRIT 43.7 % (41-53); HEMOGLOBIN 14.8 g/dL (13.5-17.5); LYMPHOCYTES # (AUTO) 1.2 K/uL (1.0-4.8); LYMPHOCYTES % (AUTO) 8.7 % (22.0-44.0); MEAN CORPUSCULAR HEMOGLOBIN 32.1 pg (26.0-34.0); MEAN CORPUSCULAR VOLUME 95 fL (80-100); MONOCYTES # (AUTO) 1.6 K/uL (0.1-1.0); MONOCYTES % (AUTO) 11.3 % (2.0-9.0); NEUTROPHILS # (AUTO) 11.2 K/uL (1.8-7.7); NEUTROPHILS % (AUTO) 79.5 % (40.0-70.0); PLATELET COUNT (AUTO) 239 K/uL (150-450); RED BLOOD CELL COUNT(AUTO) 4.62 MIL/uL (4.50-5.90); RED CELL DISTRIBUTION WIDTH 14.7 % (11.5-14.5)
[2025-01-18 09:03] LABS: ANION GAP 10 mmol/L (8-16); CALCIUM, TOTAL 9.3 mg/dL (8.8-10.5); CARBON DIOXIDE 28 mmol/L (22-29); CHLORIDE 97 mmol/L (98-107); CREATININE 1.08 mg/dL (0.60-1.30); GLOMERULAR FILTR. RATE CALC > 60 mL/min (>60); GLUCOSE,RANDOM 115 mg/dL (70-110); POTASSIUM 4.4 mmol/L (3.5-5.1); SODIUM SERUM 135 mmol/L (136-145); UREA NITROGEN, BLOOD 14 mg/dL (7-18)
[2025-01-18 09:14] LABS: ALANINE AMINOTRANSFERASE 15 U/L (12-78); ALBUMIN 3.2 g/dL (3.4-5.0); ALKALINE PHOSPHATASE 62 U/L (46-116); ASPARTATE AMINOTRANSFERASE 17 U/L (15-37); BILIRUBIN,TOTAL 0.8 mg/dL (0.1-1.0); TOTAL PROTEIN, SERUM 7.7 g/dL (6.4-8.2); VALPROIC ACID 69 mcg/mL (50-100)
[2025-01-18 11:16] VITALS: BP 129/87; PULSE 112; RESP 19; TEMP 100.3; O2SAT 98
[2025-01-18] MEDS ORDERED: AMPICILLIN SODIUM/SULBACTAM NA 3 GM in SODIUM CHLORIDE 0.9% 100 ML IV SCH (12:00)
[2025-01-18] MEDS ORDERED: AMOXICILLIN TRIHYDRATE 500 MG CAPSULE PO SCH (17:00)
[2025-01-18] MEDS ORDERED: AMOX TR/POT CLAV 875 MG/125 MG TABLET PO SCH (17:00)
[2025-01-23] MEDS ORDERED: AZITHROMYCIN 500 MG TABLET PO SCH (09:00)
== END 2025-01-18 18:36 | disposition short-term general hospital (02) | DRG 751 ==
LOC: EMS 15:56 → 3EI 01-01 01:59
PROVIDERS: ADMIT Psychiatry & Neurology Psychiatry; ATTEND Psychiatry & Neurology Psychiatry
PROC: GZHZZZZ Group Psychotherapy (ICD-10-PCS; principal; 2025-01-01)
PROC: GZ51ZZZ Individual Psychotherapy, Behavioral (ICD-10-PCS; 2025-01-01)
DX: F33.2 Major depressive disorder, recurrent severe without psychotic features (principal); R45.851 Suicidal ideations; F10.229 Alcohol dependence with intoxication, unspecified; K12.2 Cellulitis and abscess of mouth; Z20.822 Contact with and (suspected) exposure to COVID-19; M81.0 Age-related osteoporosis without current pathological fracture; F17.200 Nicotine dependence, unspecified, uncomplicated; J44.9 Chronic obstructive pulmonary disease, unspecified; K02.9 Dental caries, unspecified; Y90.8 Blood alcohol level of 240 mg/100 ml or more; Z88.5 Allergy status to narcotic agent; Z59.02 Unsheltered homelessness; Z81.8 Family history of other mental and behavioral disorders; Z98.1 Arthrodesis status
CPT/HCPCS: 71046; 80048; 80053; 80061; 80076; 80164; 80307; 81003; 83036; 84443; 85025; 87040; 93005; 99285; G0480; J0295; J3420; J7050; 36415-L1; 36415-TC

== ENCOUNTER 2025-01-18 15:05 | Inpatient (IN) | payer MEDICAID, OTHER ==
[~2025-01-18] VITALS: Ht 180.3 cm; Wt 89.5 kg
[2025-01-18] MEDS ORDERED: SODIUM CHLORIDE 0.9% 100 ML ONE (15:29)
[2025-01-18] MEDS ORDERED: IOHEXOL 350 MG/ML 100 ML VIAL ONE (15:29)
[2025-01-18] MEDS ORDERED: 0.9% SODIUM CHLORIDE 10 ML SYRINGE IVP PRN (15:30)
[2025-01-18 15:46] LABS: PLATELET COUNT (AUTO) 224 K/uL (150-450); RED BLOOD CELL COUNT(AUTO) 4.56 MIL/uL (4.50-5.90); RED CELL DISTRIBUTION WIDTH 14.6 % (11.5-14.5); WHITE BLOOD COUNT (AUTO) 12.2 K/uL (4.5-11.0)
[2025-01-18 15:47] LABS: CALCIUM, TOTAL 9.2 mg/dL (8.8-10.5); CREATININE 1.05 mg/dL (0.60-1.30); GLOMERULAR FILTR. RATE CALC > 60 mL/min (>60); GLUCOSE,RANDOM 94 mg/dL (70-110); SODIUM SERUM 137 mmol/L (136-145); UREA NITROGEN, BLOOD 19 mg/dL (7-18)
[2025-01-18 15:49] LABS: APPEARANCE,URINE CLEAR (CLEAR); GLUCOSE, URINE (UA) NEGATIVE (NEGATIVE); LEUKOCYTE ESTERASE ,URINE NEGATIVE (NEGATIVE); NITRATE,URINE NEGATIVE (NEGATIVE); OCCULT BLOOD,URINE NEGATIVE (NEGATIVE); SPECIFIC GRAVITIY, URINE 1.016 (1.003-1.030)
[2025-01-18 15:56] LABS: LACTIC ACID 1.2 mmol/L (0.4-2.0)
[2025-01-18 16:05] LABS: SQUAMOUS EPITHELIAL CELL,UR Few /LPF (None Seen)
[2025-01-18] MEDS: AMPICILLIN SODIUM/SULBACTAM NA 3 GM in SODIUM CHLORIDE 0.9% 100 ML IV SCH (16:34)
[2025-01-18] MEDS: SODIUM CHLORIDE 0.9% 1,000 ML IV ONE (17:57)
[2025-01-18] MEDS ORDERED: ONDANSETRON HCL 4 MG/2 ML VIAL IVP PRN (20:30)
[2025-01-18] MEDS: DOCUSATE SODIUM 100 MG CAPSULE PO SCH (21:00)
[2025-01-18] MEDS: CLINDAMYCIN 600 MG/D5% WATER 50 ML IV ONE (22:24)
[2025-01-18] MEDS: DEXTROSE 5%-LACTATED RINGERS 1,000 ML IV SCH (22:27)
[2025-01-18] MEDS: VANCOMYCIN 1.5 GM/WATER(PEG) 300 ML IV ONE (22:27)
[2025-01-18] MEDS: PIPERACILLIN/TAZO 3.375 GM/D5W 50 ML IV SCH (22:43)
[2025-01-18] MEDS: KETOROLAC TROMETHAMINE 15 MG/ML VIAL IVP PRN (23:05)
[2025-01-19] VITALS (7 sets, daily range): BP systolic 103–121; BP diastolic 62–79; PULSE 68–79; RESP 17–19; TEMP 97.5–98.4; O2SAT 95–98
[2025-01-19] MEDS: HEPARIN SODIUM,PORCINE 5,000 UNITS/ML VIAL SQ SCH (00:53)
[2025-01-19] MEDS ORDERED: SODIUM CHLORIDE 0.9% 500 ML IV ONE (02:27)
[2025-01-19 02:29] LABS: INFLUENZA A-RTPCR,COMBO NEGATIVE (NEGATIVE); INFLUENZA B-RTPCR,COMBO NEGATIVE (NEGATIVE); RESPIRATORY SYNCYTIAL VRS-PCR NEGATIVE (NEGATIVE); SARS COVID19 RTPCR, COMBO NEGATIVE (NEGATIVE)
[2025-01-19 06:05] LABS: PLATELET COUNT (AUTO) 211 K/uL (150-450); RED BLOOD CELL COUNT(AUTO) 4.33 MIL/uL (4.50-5.90); RED CELL DISTRIBUTION WIDTH 14.7 % (11.5-14.5); WHITE BLOOD COUNT (AUTO) 7.5 K/uL (4.5-11.0)
[2025-01-19 06:22] LABS: CALCIUM, TOTAL 9.4 mg/dL (8.8-10.5); CREATININE 1.10 mg/dL (0.60-1.30); GLOMERULAR FILTR. RATE CALC > 60 mL/min (>60); GLUCOSE,RANDOM 99 mg/dL (70-110); SODIUM SERUM 140 mmol/L (136-145); UREA NITROGEN, BLOOD 23 mg/dL (7-18)
[2025-01-19] MEDS: VANCOMYCIN 1GM/WATER(PEG/NADA) 200 ML IV SCH (08:32)
[2025-01-19] MEDS: ACETAMINOPHEN 325 MG TABLET PO PRN (08:32)
[2025-01-19] MEDS ORDERED: GADOTERATE MEGLUMINE 10 MMOL/20 ML VIAL IVP ONE (10:15)
[2025-01-19] MEDS: DEXAMETHASONE SOD PHOS 4 MG/ML VIAL IVP SCH (15:00)
[2025-01-20 04:11] VITALS: BP 100/74; PULSE 73; RESP 18; TEMP 97.7; O2SAT 96
[2025-01-20 07:50] LABS: PLATELET COUNT (AUTO) 313 K/uL (150-450); RED BLOOD CELL COUNT(AUTO) 4.69 MIL/uL (4.50-5.90); RED CELL DISTRIBUTION WIDTH 14.3 % (11.5-14.5); WHITE BLOOD COUNT (AUTO) 10.5 K/uL (4.5-11.0)
[2025-01-20 08:05] VITALS: BP 111/70; PULSE 63; RESP 19; TEMP 97.9; O2SAT 96
[2025-01-20 08:09] LABS: SODIUM SERUM 141 mmol/L (136-145)
[2025-01-20 08:10] LABS: CALCIUM, TOTAL 8.9 mg/dL (8.8-10.5); CREATININE 0.82 mg/dL (0.60-1.30); GLOMERULAR FILTR. RATE CALC > 60 mL/min (>60); GLUCOSE,RANDOM 130 mg/dL (70-110); UREA NITROGEN, BLOOD 17 mg/dL (7-18)
[2025-01-20 10:46] VITALS: BP 107/68; PULSE 65; RESP 19; TEMP 97.6; O2SAT 95
[2025-01-20 15:01] VITALS: BP 118/73; PULSE 74; RESP 19; TEMP 97.7; O2SAT 98
[2025-01-20] MEDS: VANCOMYCIN 1GM/WATER(PEG/NADA) 200 ML IV SCH (15:57)
[2025-01-20 20:00] VITALS: BP 112/73; PULSE 72; RESP 18; RESP 8; TEMP 98.2; O2SAT 98
[2025-01-20] MEDS ORDERED: NALOXONE HCL 1 MG/ML 2 ML SYRINGE IVP PRN (21:30)
[2025-01-20] MEDS: GABAPENTIN 300 MG CAPSULE PO ONE (21:47)
[2025-01-20 23:28] VITALS: BP 127/72; PULSE 78; RESP 18; TEMP 98.1; O2SAT 97
[2025-01-21 04:18] VITALS: BP 115/68; PULSE 61; RESP 18; TEMP 97.5; O2SAT 95
[2025-01-21 07:06] LABS: CALCIUM, TOTAL 8.9 mg/dL (8.8-10.5); CREATININE 0.83 mg/dL (0.60-1.30); GLOMERULAR FILTR. RATE CALC > 60 mL/min (>60); GLUCOSE,RANDOM 204 mg/dL (70-110); SODIUM SERUM 141 mmol/L (136-145); UREA NITROGEN, BLOOD 13 mg/dL (7-18)
[2025-01-21 07:51] VITALS: BP 108/71; PULSE 64; RESP 18; TEMP 97.6; O2SAT 95
[2025-01-21 12:15] VITALS: BP 122/73; PULSE 55; RESP 18; TEMP 97.7; O2SAT 95
[2025-01-21 16:00] VITALS: BP 122/73; PULSE 55; RESP 18; TEMP 97.7; O2SAT 95
[2025-01-21] MEDS ORDERED: ESZOPICLONE 3 MG TABLET PO PRN (18:00)
[2025-01-21] MEDS ORDERED: GuaiFENesin/D-METHORPHAN [SUGAR-FREE] 200-20MG/10 ML SYRUP UDCUP PO PRN (18:00)
[2025-01-21 20:15] VITALS: BP 138/85; PULSE 61; RESP 16; TEMP 98.1; O2SAT 96
[2025-01-21] MEDS: GABAPENTIN 400 MG CAPSULE PO SCH (21:11)
[2025-01-21] MEDS: THIAMINE 100 MG TABLET PO SCH (21:11)
[2025-01-21] MEDS: KETOROLAC TROMETHAMINE 15 MG/ML VIAL IVP PRN (21:12)
[2025-01-22 00:05] VITALS: BP 121/79; PULSE 61; RESP 17; TEMP 97.5; O2SAT 95
[2025-01-22 05:34] VITALS: BP 126/77; PULSE 56; RESP 17; TEMP 97.3; O2SAT 95
[2025-01-22 06:27] LABS: CALCIUM, TOTAL 8.7 mg/dL (8.8-10.5); CREATININE 0.76 mg/dL (0.60-1.30); GLOMERULAR FILTR. RATE CALC > 60 mL/min (>60); GLUCOSE,RANDOM 155 mg/dL (70-110); SODIUM SERUM 142 mmol/L (136-145); UREA NITROGEN, BLOOD 10 mg/dL (7-18)
[2025-01-22] MEDS: DULoxetine HCL 60 MG CAPSULE PO SCH (08:08)
[2025-01-22] MEDS: FOLIC ACID 1 MG TABLET PO SCH (08:08)
[2025-01-22] MEDS: BuPROPion HCL XL 150 MG ER TABLET PO SCH (08:09)
[2025-01-22] MEDS: GABAPENTIN 300 MG CAPSULE PO PRN (08:09)
[2025-01-22] MEDS: MULTIVITAMINS WITH MINERALS, THERAPEUTIC TABLET PO SCH (08:09)
[2025-01-22 08:38] VITALS: BP 126/95; PULSE 64; RESP 19; TEMP 98.8; O2SAT 97
[2025-01-22 16:47] LABS: COVID AG,FIA SOURCE NASAL SWAB
[2025-01-22 17:07] LABS: SARS-COV2 (COVID) ANTIGEN,FIA Negative (Negative)
== END 2025-01-22 17:40 | DRG 383 ==
LOC: EMS 15:05 → EDH 20:17 → 5N 01-19 01:55 → 6N 01-22 10:30
PROVIDERS: ADMIT Internal Medicine; ATTEND Internal Medicine
DX: L03.211 Cellulitis of face (principal); R65.11 Systemic inflammatory response syndrome (SIRS) of non-infectious origin with acute organ dysfunction; R45.851 Suicidal ideations; Z20.822 Contact with and (suspected) exposure to COVID-19; F41.9 Anxiety disorder, unspecified; F17.210 Nicotine dependence, cigarettes, uncomplicated; M60.88 Other myositis, other site; F33.2 Major depressive disorder, recurrent severe without psychotic features; Y90.9 Presence of alcohol in blood, level not specified; K04.7 Periapical abscess without sinus; Z79.899 Other long term (current) drug therapy; Z81.8 Family history of other mental and behavioral disorders; Z88.5 Allergy status to narcotic agent; Z81.1 Family history of alcohol abuse and dependence; Z63.72 Alcoholism and drug addiction in family
CPT/HCPCS: 0241U; 70487; 70543; 80048; 80202; 81001; 83605; 83735; 84145; 85025; 93005; 99285; G0378; J0295; J1100; J1171; J1644; J1885; J2543; J3490; J7040; J7050